=== PATIENT | male | born 1985 | race Caucasian/White ===

== ENCOUNTER → 2017-08-18 | Outpatient (REF) ==
[2017-08-18 16:42] LABS: HIV 1/2 Antibodies Non-Reactive; HIV-1p24 Antigen Non-Reactive
== END ==
LOC: ZLAB.WCH 15:52
PROVIDERS: Family Medicine
DX: Z01.89 Encounter for other specified special examinations (principal)

== ENCOUNTER 2021-04-07 08:05 | Day surgery (SDC) | payer BC ==
[~2021-04-07] VITALS: Ht 188 cm; Wt 91.8 kg
[2021-04-07 08:47] VITALS: BP 158/87; PULSE 80; TEMP 97.6
[2021-04-07] MEDS ORDERED: MOTRIN 600600 MG/TAB PO (11:24)
[2021-04-07] MEDS ORDERED: COLACE 100100 MG/CAP PO (11:24)
[2021-04-07] MEDS ORDERED: NORCO 325 MG-51 TAB PO (11:25)
[2021-04-07 11:45] VITALS: BP 122/80; PULSE 71; TEMP 97.9
--- NOTE | 2021-04-07 11:45 | NUR ---
The patient arrived back to [facility] from the recovery room at this time. The patient appears alert and oriented and denies any pain or nausea at this time. The patient has three incisions to his abdomen that are covered with surgical glue and without redness or edema. The patient's post operative vital signs were started at this time. The patient agrees to try some grape juice and ice water at this time. Call light is within reach. Will continue to monitor the patient.
[2021-04-07 12:00] VITALS: BP 122/77; PULSE 69
--- NOTE | 2021-04-07 12:00 | NUR ---
The patient appears to be tolerating his drinks well and agrees to try some applesauce at this time. Vital signs appear stable. The patient continues to deny pain or nausea at this time. Will continue to monitor the patient.
--- NOTE | 2021-04-07 12:12 | NUR ---
The patient has finished his applesauce and denies wanting anything further at this time. The patient agrees to try to ambulate to the bathroom. The patient voided without difficulty and voices a desire to be discharged home.
[2021-04-07 12:15] VITALS: BP 111/78; PULSE 72
--- NOTE | 2021-04-07 12:20 | NUR ---
Discharge instructions were reviewed with the patient and his girlfriend at this time. They both verbalized understanding and have no questions for the nurse at this time. The patient's IV to his left hand was removed and a pressure dressing was applied to the site. The patient is dressed and ready to be escorted out.
--- NOTE | 2021-04-07 12:30 | NUR ---
The patient was escorted out via wheelchair to a private vehicle by CHATA Coe. The patient's belonging and discharge paperwork were sent with him. The patient's girlfriend is present to drive him home.
== END 2021-04-07 12:30 | disposition home or self-care (01) ==
LOC: SDCO 08:05
DX: K40.90 Unilateral inguinal hernia, without obstruction or gangrene, not specified as recurrent (principal); D17.6 Benign lipomatous neoplasm of spermatic cord; Z20.822 Contact with and (suspected) exposure to COVID-19; F17.290 Nicotine dependence, other tobacco product, uncomplicated
CPT/HCPCS: A4314; C1781; J0690; J1100; J1885; J2250; J2405; J2704; J3010; J7120